=== PATIENT | male | born 1975 | race Caucasian/White ===

== ENCOUNTER 2022-03-11 13:55 | Emergency (ER) | payer BC ==
[~2022-03-11] VITALS: Ht 170.2 cm; Wt 106.0 kg
[2022-03-11 14:25] VITALS: BP 139/93
[2022-03-11] MEDS ORDERED: ONDA4TAB11 PO (17:29)
[2022-03-11] MEDS ORDERED: MAG-55 PO (17:29)
== END 2022-03-11 18:13 | disposition home or self-care (01) ==
LOC: ER 13:55
DX: A08.4 Viral intestinal infection, unspecified (principal)
CPT/HCPCS: 99283